=== PATIENT | male | born 1985 | race African-American/Black ===

== ENCOUNTER 2016-09-05 07:58 | Emergency (ER) | payer OTHER ==
[~2016-09-05] VITALS: Wt 113.4 kg
[2016-09-05] MEDS ORDERED: LANTUS100 U/ML SC (08:16)
[2016-09-05 08:21] LABS: BASO # 0.1 10*3/uL (0.0-0.1); BASO % 0.7 % (0.0-1.0); EOS # 0.3 10*3/uL (0.0-0.4); EOS % 2.5 % (1.0-4.0); HEMATOCRIT 45.3 % (42.0-52.0); HEMOGLOBIN 15.5 g/dl (14.0-18.0); LYMPH # 3.1 10*3/uL (1.3-4.4); LYMPH % 25.9 % (27.0-41.0); MEAN CELL VOLUME 86.6 fl (80.0-94.0); MEAN CORPUSCULAR HGB 29.6 pg (27.0-31.0); MEAN CORPUSCULAR HGB CONC 34.2 g/dl (33.0-37.0); MEAN PLATELET VOLUME 11.1 fl (9.6-12.3); MONO # 0.8 10*3/uL (0.1-1.0); MONO % 6.7 % (3.0-9.0); NEUT # 7.5 10*3/uL (2.3-7.9); NEUT % 63.9 % (47.0-73.0); PLATELET COUNT AUTOMATED 260 10*3/uL (130-400); RED BLOOD COUNT 5.23 10*6/uL (4.50-5.90); WHITE BLOOD COUNT 11.8 10*3/uL (4.8-10.8)
[2016-09-05 08:33] LABS: BUN 12 mg/dl (7-24); CARBON DIOXIDE 25 mmol/L (21-32); CHLORIDE 108 mmol/L (98-107); EST GLOM FILT AFRICAN AMERICAN > 60 ml/min; GLUCOSE 162 mg/dL (65-99); POTASSIUM 3.2 mmol/L (3.5-5.1); SODIUM 140 mmol/L (136-145)
== END 2016-09-05 08:58 | disposition home or self-care (01) ==
LOC: ED 07:58 → EDBD 07:59 → ED 08:58
PROVIDERS: Emergency Medicine
DX: E11.649 Type 2 diabetes mellitus with hypoglycemia without coma (principal); Z79.4 Long term (current) use of insulin; Z88.4 Allergy status to anesthetic agent

== ENCOUNTER 2016-11-09 12:15 | Emergency (ER) | payer SELFPAY ==
[~2016-11-09] VITALS: Ht 152.4 cm; Wt 99.8 kg
[~2016-11-09 12:15] MED LIST: LANTUS100 U/ML SC
== END 2016-11-09 12:46 | disposition other institution (70) ==
LOC: ED 12:15
DX: E11.649 Type 2 diabetes mellitus with hypoglycemia without coma (principal); F17.200 Nicotine dependence, unspecified, uncomplicated; Z88.4 Allergy status to anesthetic agent